=== PATIENT | female | born 2000 | race Hispanic/Latino ===

== ENCOUNTER → 2025-04-11 | Outpatient (CLI) | payer BC ==
--- NOTE | 2025-04-12 08:50 | HMCIMG ---
EXAM: CT Head Without IV contrast. CLINICAL HISTORY: Migraine, unspecified, not intractable, without status migrainosus TECHNIQUE: Axial computed tomography images of the head/brain without intravenous contrast. COMPARISON: None provided. FINDINGS: BRAIN: No evidence of acute hemorrhage. No mass lesion. No CT evidence for acute territorial infarct. No midline shift or extra-axial collections. VENTRICLES: No hydrocephalus. ORBITS: The orbits are unremarkable. SINUSES AND MASTOIDS: The paranasal sinuses and mastoid air cells are clear. BONES: No fracture. SOFT TISSUES: Unremarkable. IMPRESSION: 1. No acute intracranial findings. /[place]
== END ==
LOC: RAH 06:52
PROVIDERS: ATTEND Nurse Practitioner Family
DX: G43.909 Migraine, unspecified, not intractable, without status migrainosus (principal)
CPT/HCPCS: 70450